=== PATIENT | female | born 1960 | race Caucasian/White ===

== ENCOUNTER 2017-02-06 08:35 | Day surgery (SDC) | payer OTHER ==
[~2017-02-06 08:35] MED LIST: ALPRAZOLAM0.5 MG PO; ASPIRIN 81MG TA81 MG PO; AUGMENTIN 875-1 EACH PO; AUGMENTIN1 TA2 PO; BACTRIM DS 8001 TA1 PO; BACTROBAN2% TP; CAMBIA50 MG PO; DIFLUCAN150 MG PO; FLEXERIL10 M1 PO; FLEXERIL10 MG PO; GABAPENTIN 100100 MG PO; LORTAB 5/500 501 TAB PO; MOBIC7.5 MG PO; NAPROSYN 500MG500 MG PO; NOLVADEX20 MG PO; PHENERGAN 25MG.25 M1 PO; TRAMADOL 50MG T50 M1 PO; ZANAFLEX2 M1 PO
--- NOTE | 2017-02-06 10:15 | Operative Note ---
Colonoscopy ([facility]) Procedure date: 02/06/17 Date of : 62 Procedure:Colonoscopy Colonoscopy Indications: Mrs. Garcia is a 56-year-old female who is here for initial screening colonoscopy. The patient does have some back pain and discomfort approximately once a month and this often is accompanied by constipation and some RIGHT lower quadrant abdominal discomfort. The patient reports no rectal bleeding, weight loss or family history of colon cancer. Her mother had Crohn's disease and colitis. Performing Provider: Ivett Shields MD Referrring Provider: Russell Levy M.D. Sedation: Fentanyl 200 mg IV/Versed 10 mg IV Procedure: Prior to the procedure, a history and physical exam was performed, and patient medications and allergies were reviewed. The risks and benefits of the procedure and the sedation options and risks were discussed with the patient. All questions were answered and informed consent was obtained. Patient identification and proposed procedure were verified by the physician and the nurse. The patient was placed in a left lateral decubitus position. Throughout the procedure, the patient's blood pressure, pulse, and oxygen saturations were monitored continuously. Findings: On digital rectal examination there was normal rectal tone. There were no external hemorrhoids. The colonoscope was introduced through the anal canal to the rectum and advanced to the cecum. The ileocecal valve and appendiceal orifice were identified. The scope was advanced a short distance into the ileum which appeared grossly normal. The scope was then withdrawn into the colon. The cecum, ascending, transverse, descending, sigmoid and rectum were grossly normal. There was mild colonic tortuosity. There were no mucosal abnormalities identified. Upon retroflexion within the rectum there were grade 1 internal hemorrhoids. Impressions: 1. Normal colonoscopy with intubation of the terminal ileum Recommendations: The patient will not require screening/surveillance colonoscopy again for 10 years by ACS guidelines. I would encourage a fiber bowel regimen on a long-term daily maintenance basis. Complications: None EBL (ml): 0 at 1014
[2017-02-06 12:52] VITALS: BP 129/62
== END 2017-02-06 11:10 | disposition home or self-care (01) ==
LOC: SDC 08:35
PROVIDERS: Internal Medicine Gastroenterology
PROC: 0DJD8ZZ Inspection of Lower Intestinal Tract, Via Natural or Artificial Opening Endoscopic (ICD-10-PCS; principal; 2017-02-06 09:30)
DX: Z12.11 Encounter for screening for malignant neoplasm of colon (principal); K64.0 First degree hemorrhoids

== ENCOUNTER → 2017-02-12 | Outpatient (CLI) | payer OTHER ==
--- NOTE | 2017-02-12 15:37 | RADIOLOGY REPORT PS360 ---
US PELVIS-TRANSVAGINAL ONLY HISTORY: RLQ PAIN ORDERING PHYSICIAN: Terri Chun APRN PATIENT AGE: 56 years COMPARISON: None FINDINGS: UTERUS: The uterus measures 7.5 x 3 x 4 cm. Combined endometrial thickness is 6 mm. There is a 1.3 cm area of heterogeneous echogenicity within the body the uterus anteriorly consistent with a fibroid. RIGHT OVARY: 1.5 x 1.5 cm LEFT OVARY: 2.2 x 2 cm CUL-DE-SAC FLUID: No cul-de-sac fluid apparent OTHER FINDINGS: There is moderate amount stool in the pelvis within the bowel IMPRESSION: Small uterine fibroid otherwise negative pelvic ultrasound
== END ==
LOC: RAD 10:37
DX: R10.31 Right lower quadrant pain (principal)

== ENCOUNTER 2017-04-07 14:04 | Day surgery (SDC) | payer OTHER ==
[~2017-04-07] VITALS: Ht 172.7 cm; Wt 63.5 kg
[2017-04-07 14:28] VITALS: BP 153/87
[2017-04-07] MEDS ORDERED: TOPAMAX100 MG PO (14:31)
[2017-04-07 15:04] VITALS: BP 153/87
--- NOTE | 2017-04-07 15:06 | Procedure Note ---
Procedure detail Date of procedure: 04/07/17 Anesthesiologist: Indra Lucero Complications: None Pre-procedure diagnosis: RIGHT sacroiliitis Post-procedure diagnosis: Same Indications for procedure: Very pleasant 56-year-old white female that has extreme point tenderness over the RIGHT SI joint. She has responded well to SI joint injections in the past. She presents today for RIGHT SI joint injection. Procedure detail: Procedure: Right sacroliliac joint injection under fluoroscopy Informed consent was obtained and the risk and benefits of the procedure were explained to the patient.~ The patient was taken to the procedure room and noninvasive monitors were placed including noninvasive blood pressure cuff and pulse oximeter.~ The patient was placed prone on the procedure table.~ The~ right hip was cleansed using Betadine as a cleansing solution.~ C-arm fluorosocpy was used to view the right SI joint.~ The skin and subcutaneous tissues were anesthetized using Lidocaine 1.5% and a 25-gauge needle.~ After this, a 22-gauge spinal needle was inserted under fluoroscopic guidance into the inferior aspect of the right SI joint.~ Omnipaque dye was injected and a good spread was seen throughout the joint.~ After this, approximately 5 mL of bupivacaine 0.25% and Depo-Medrol 40 mg was incrementally injected into the sacroiliac joint.~ The patient tolerated the procedure well with no complications.~ The patient was observed in the Pain [facility], then discharged home neurologically intact.~ Plan and disposition: Patient was evaluated 10 minutes post procedure. She reports 90 percent improvement terms her RIGHT hip pain. at 1506
[2017-04-07 15:50] VITALS: BP 152/88
== END 2017-04-07 15:20 | disposition home or self-care (01) ==
LOC: PM 14:04
PROC: 3E0U33Z Introduction of Anti-inflammatory into Joints, Percutaneous Approach (ICD-10-PCS; principal; 2017-04-07)
PROC: 3E0U3BZ Introduction of Anesthetic Agent into Joints, Percutaneous Approach (ICD-10-PCS; 2017-04-07)
DX: M46.1 Sacroiliitis, not elsewhere classified (principal)
CPT/HCPCS: G0260